=== PATIENT | male | born 1995 | race Two or more races ===

== ENCOUNTER 2018-10-07 00:23 | Emergency (ER) | payer BC ==
[2018-10-07] MEDS ORDERED: Ondansetron 4 MG/2 ML SDV IVPUSH ONE (00:46)
[2018-10-07] MEDS ORDERED: Sodium Chloride 0.9% 10 ML Syringe FLUSH PRN (00:46)
[2018-10-07] MEDS ORDERED: Sodium Chloride 0.9% 1,000 ML IV SCH (01:00)
[2018-10-07] MEDS ORDERED: Metoclopramide 10 MG/2 ML SDV IVPUSH ONE (01:56)
--- NOTE | 2018-10-07 02:15 | EDM.PDOC ---
ED HPI GENERAL MEDICAL PROBLEM - General Chief Complaint: Gastrointestinal Problem Stated Complaint: UNABLE TO KEEP ANYTHING DOWN STOMACH PAIN DIZZY Time Seen by Provider: 10/07/18 00:41 Source of Information: Reports: Patient, RN Notes Reviewed - History of Present Illness INITIAL COMMENTS - FREE TEXT/NARRATIVE: 23-year-old male with onset of vomiting late yesterday morning. That has continued. He has tried to eat and drink but that just makes him vomit. Mild abdominal pain and cramping. No diarrhea. No fever. No chest pain or difficulty breathing. - Related Data Allergies Allergy/AdvReac Type Severity Reaction Status Date / Time No Known Allergies Allergy Verified 10/07/18 00:37 Home Meds: Home Meds Ondansetron [Zofran ODT] 4 mg PO Q6H PRN #7 tab.dis 10/07/18 [Rx] Venlafaxine [Effexor] 25 mg PO DAILY 10/07/18 [History] busPIRone [Buspar] 10 mg PO DAILY 10/07/18 [History] Past Medical History - Past Health History Medical/Surgical History: Denies Medical/Surgical History Psychiatric History: Reports: Anxiety, Depression Social & Family History - Tobacco Use Smoking Status *Q: Never Smoker - Caffeine Use Caffeine Use: Reports: None - Recreational Drug Use Recreational Drug Use: No ED ROS GENERAL - Review of Systems Review Of Systems: See Below Constitutional: Denies: Fever, Chills HEENT: Reports: No Symptoms Respiratory: Denies: Shortness of Breath Cardiovascular: Denies: Chest Pain GI/Abdominal: Reports: Abdominal Pain, Nausea, Vomiting. Denies: Diarrhea Musculoskeletal: Reports: No Symptoms Skin: Reports: No Symptoms Neurological: Reports: Dizziness ED EXAM, GI/ABD - Physical Exam Exam: See Below General Appearance: Alert, Mild Distress Eyes: Bilateral: Normal Appearance Throat/Mouth: Other (Or mucosa is mildly dry) Head: Atraumatic. No: Facial Swelling Neck: Supple, Full Range of Motion Respiratory/Chest: No Respiratory Distress, Lungs Clear, Normal Breath Sounds Cardiovascular: Regular Rate, Rhythm GI/Abdominal Exam: Soft, Non-Tender. No: Guarding Extremities: Normal Inspection Neurological: Alert, Oriented, No Motor/Sensory Deficits Skin Exam: Warm, Dry, Normal Color Course - Vital Signs Last Recorded V/S: Last Vital Signs Temp 97.8 F 10/07/18 00:32 Pulse 86 02/05/19 00:32 Resp 16 10/07/18 00:32 BP 146/91 H 10/07/18 00:32 Pulse Ox 96 10/07/18 00:32 Orthostatic Blood Pressure [ 119/82 Standing] Orthostatic Blood Pressure [ 135/84 Supine] - Orders/Labs/Meds Orders: Active Orders 24 hr Category Date Time Status Peripheral IV Care [RC] . DIRECTED Care 10/07/18 00:47 Active Peripheral IV Insertion Adult [OM.PC] Stat Oth 10/07/18 00:46 Ordered Meds: Medications Discontinued Medications Generic Name Dose Route Start Last Admin Trade Name Freq PRN Reason Stop Dose Admin Sodium Chloride 1,000 mls @ 999 mls/hr 10/07/18 01:00 10/07/18 00:56 Normal Saline IV 999 mls/hr ONETIME MOMO Administration Metoclopramide HCl 5 mg 10/07/18 01:56 10/07/18 02:02 Reglan IVPUSH 10/07/18 01:57 5 mg ONETIME ONE Administration Ondansetron HCl 4 mg 10/07/18 00:46 10/07/18 00:55 Zofran IVPUSH 10/07/18 00:47 4 mg ONETIME ONE Administration Sodium Chloride 10 ml 10/07/18 00:46 10/07/18 00:55 Saline Flush FLUSH 10 ml ASDIRECTED PRN Administration Keep Vein Open Departure - Departure Time of Disposition: 02:14 Disposition: Home, Self-Care 01 Condition: Fair Clinical Impression: Vomiting, Abdominal pain - Discharge Information Prescriptions: Ondansetron [Zofran ODT] 4 mg PO Q6H PRN #7 tab.dis PRN Reason: Nausea/Vomiting Instructions: Abdominal Pain, Adult, [id number], Vomiting, Adult Referrals: PCP,None [Primary Care Provider] - Forms: ED Department Discharge, ED Return to Work/School Form Additional Instructions: Clear liquids until this afternoon or until nausea vomiting has completely stopped, Zofran every 6-8 hours if needed for any further nausea or vomiting. Follow-up clinic if not back to normal within 1-2 days as expected. - My Orders Last 24 Hours: My Active Orders 10/07/18 00:46 Peripheral IV Insertion Adult [OM.PC] Stat 10/07/18 00:47 Peripheral IV Care [RC] . DIRECTED - Assessment/Plan Last 24 Hours: My Active Orders 10/07/18 00:46 Peripheral IV Insertion Adult [OM.PC] Stat 10/07/18 00:47 Peripheral IV Care [RC] . DIRECTED
== END 2018-10-07 02:22 | disposition home or self-care (01) ==
LOC: JD.ED 00:23
DX: R11.10 Vomiting, unspecified (principal); R10.9 Unspecified abdominal pain; F41.9 Anxiety disorder, unspecified; F32.9 Major depressive disorder, single episode, unspecified; Z79.899 Other long term (current) drug therapy
CPT/HCPCS: 96361; 96374; 96375; 99284; J2405; J2765; J7040

== ENCOUNTER 2018-12-10 14:16 | Emergency (ER) | payer BC ==
[2018-12-10] MEDS ORDERED: HYDROmorphone 1 MG/ML Syringe IM ONE ×2 (14:36→15:28)
--- NOTE | 2018-12-10 14:43 | EDM.PDOC ---
ED HPI GENERAL MEDICAL PROBLEM - General Chief Complaint: Upper Extremity Injury/Pain Stated Complaint: POSS BROKEN RIGHT ARM Time Seen by Provider: 12/10/18 14:24 Source of Information: Reports: Patient, RN Notes Reviewed History Limitations: Reports: No Limitations - History of Present Illness INITIAL COMMENTS - FREE TEXT/NARRATIVE: Patient is a 23-year-old male who presents to the ED for the evaluation of right arm pain after a skateboarding accident. This happened just prior to arrival to the ED. He has not taken any pain medications for this. He states that he was skateboarding at a nearby park when he hit a rock and this ended up flinging him forward onto his outstretched right arm. He states he was not wearing a helmet but he does not remember hitting his head or any loss of consciousness at this time. He states most of his pain is in his right wrist and right elbow. He notes some small amount of tingling into his right pinky finger he would rate his pain at an 8 out of 10 when it is present, which is constant since injury and does crease to a 10 with certain movements of his right arm. He also notes that he is right-handed at this time. There is no visible lacerations to his right arm. He further denies any pain into his right shoulder. Right Arm Pain Score (Numeric/FACES): 8 - Related Data Allergies Allergy/AdvReac Type Severity Reaction Status Date / Time No Known Allergies Allergy Verified 12/10/18 14:29 Home Meds: Home Meds Ondansetron [Zofran ODT] 4 mg PO Q6H PRN #7 tab.dis 10/07/18 [Rx] Venlafaxine [Effexor] 100 mg PO DAILY 10/07/18 [History] busPIRone [Buspar] 15 mg PO DAILY 10/07/18 [History] Acetaminophen/HYDROcodone [[place] 325-5 MG] 1 tab PO Q6H PRN #28 tablet 12/10/18 [Rx] Past Medical History - Past Health History Medical/Surgical History: Denies Medical/Surgical History Psychiatric History: Reports: Anxiety, Depression Social & Family History - Caffeine Use Caffeine Use: Reports: None Review of Systems - Review of Systems Review Of Systems: See Below Constitutional: Reports: No Symptoms Eyes: Reports: No Symptoms Ears: Reports: No Symptoms Nose: Reports: No Symptoms Mouth/Throat: Reports: No Symptoms Respiratory: Reports: No Symptoms Cardiovascular: Reports: No Symptoms GI/Abdominal: Reports: No Symptoms Genitourinary: Reports: No Symptoms Musculoskeletal: Reports: Arm Pain (Right forearm pain, wrist pain) Skin: Reports: No Symptoms Neurological: Reports: Tingling Psychiatric: Reports: No Symptoms ED EXAM, GENERAL - Physical Exam Exam: See Below Exam Limited By: No Limitations General Appearance: Alert, WD/WN, Mild Distress (appears to be in a mild amount of pain) Eye Exam: Bilateral Eye: EOMI, Normal Inspection, PERRL Ears: Normal External Exam, Normal TMs Nose: Normal Inspection Throat/Mouth: Normal Inspection, Normal Lips, Normal Teeth, Normal Oropharynx, Normal Voice, No Airway Compromise Head: Atraumatic, Normocephalic Respiratory/Chest: No Respiratory Distress, Lungs Clear, Normal Breath Sounds, No Accessory Muscle Use, Chest Non-Tender Cardiovascular: Normal Peripheral Pulses, Regular Rate, Rhythm, No Murmur Extremities: Normal Inspection, Normal Capillary Refill, Limited Range of Motion (d/t pain in arm, small deformity noted over the right lateral wrist) Neurological: Alert, Oriented, Normal Cognition, No Motor/Sensory Deficits Psychiatric: Normal Affect, Normal Mood Skin Exam: Warm, Dry, Intact, Normal Color, No Rash. No: Ecchymosis, Erythema Lymphatic: No Adenopathy ED TRAUMA EXTREMITY PROCEDURES - Splinting Right Upper Extremity Splint Site: long arm ulnar gutter Pre-Procedure NV Status: Normal Post-Procedure NV Status: Normal Splint Material: Fiberglass Splint Design: Gutter (long arm ulnar gutter), Sling Applied & Form Fitted By: Provider Provider Post-Splint Application NV Check: NV Status Normal, Good Position Complications: No Course - Vital Signs Last Recorded V/S: Last Vital Signs Temp 97.1 F 12/10/18 14:25 Pulse 80 12/10/18 14:25 Resp 16 12/10/18 14:25 BP 123/81 12/10/18 14:25 Pulse Ox 100 12/10/18 14:25 - Orders/Labs/Meds Orders: Active Orders 24 hr Category Date Time Status DME for Discharge [COMM] Routine Oth 12/10/18 16:26 Ordered Meds: Medications Discontinued Medications Generic Name Dose Route Start Last Admin Trade Name Freq PRN Reason Stop Dose Admin Hydromorphone HCl 0.5 mg 12/10/18 14:36 12/10/18 14:47 Dilaudid IM 12/10/18 14:37 0.5 mg ONETIME ONE Administration Hydromorphone HCl 0.5 mg 12/10/18 15:28 12/10/18 15:34 Dilaudid IM 12/10/18 15:29 0.5 mg ONETIME ONE Administration - Re-Assessments/Exams Free Text/Narrative Re-Assessment/Exam: 12/10/18 14:38 Patient presents to the ED for the evaluation of a right arm injury after skateboarding accident. I did order a forearm x-ray and right wrist x-ray as these areas provided the most pain for him. I did order 0.5 mg of IM Dilaudid for initial pain relief. 12/10/18 15:39 Right forearm x-ray shows findings consistent with a radial head fracture extending into the radial neck. No abnormalities seen on the wrist study. Will use a long arm ulnar gutter splint and recommend that he follow-up with orthopedics for cast placement. I have also ordered another 0.5 mg of IM Dilaudid for pain relief while we placed the splint. Departure - Departure Time of Disposition: 16:20 Disposition: Home, Self-Care 01 Condition: Fair Clinical Impression: Radial head fracture Qualifiers: Encounter type: initial encounter Fracture type: closed Fracture alignment: nondisplaced Laterality: right Qualified Code(s): S52.124A - Nondisplaced fracture of head of right radius, initial encounter for closed fracture - Discharge Information *PRESCRIPTION DRUG MONITORING PROGRAM REVIEWED*: No *COPY OF PRESCRIPTION DRUG MONITORING REPORT IN PATIENT MARIAH: No Prescriptions: Acetaminophen/HYDROcodone [[place] 325-5 MG] 1 tab PO Q6H PRN #28 tablet PRN Reason: Pain Instructions: Cast or Splint Care, Adult, [id number], Radial Head Fracture, [id number] Referrals: PCP,None [Primary Care Provider] - Forms: ED Department Discharge, ED Return to Work/School Form Additional Instructions: You have been evaluated in the ED for your right arm pain. Your x-ray demonstrated a fracture of your proximal radial head in your right forearm. Please use ice as tolerated to the affected area. Use the sling as tolerated for further pain relief. Please keep the splint in place until you are evaluated by orthopedics. You may take Tylenol 500 mg or ibuprofen 600mg q6 hrs for pain relief. Please do so until you have a tolerable level of pain with activity. Do not exceed 4000mg tylenol, Do not exceed 3200mg ibuprofen in a 24 hour time period. Please take the [place] tablets, 5/325 mg every 4-6 hours as needed for pain not relieved by Tylenol or ibuprofen alone. If you are needing to take these medications, they can be somewhat constipating, so please increase your fluid intake or take a stool softener like Dulcolax or MiraLAX. Your pain medications have been electronically [facility] to [facility] located on [facility]. This pharmacy is open until 6 PM today. Please call Ortho for follow-up and further evaluation Dr. Hanks is our orthopedic surgeon, his office number is [phone]. Please call and set up an appointment as soon as possible for further management. Please return to ED if your symptoms should change or worsen. - My Orders Last 24 Hours: My Active Orders 12/10/18 16:26 DME for Discharge [COMM] Routine - Assessment/Plan Last 24 Hours: My Active Orders 12/10/18 16:26 DME for Discharge [COMM] Routine
--- NOTE | 2018-12-10 15:22 | CR ---
Right wrist: Four views the right wrist were obtained. Comparison: No previous wrist study. Joint spaces are preserved. No fracture, dislocation or other bony abnormality is seen. Impression: 1. No abnormality is appreciated on right wrist exam. Diagnostic code #1
--- NOTE | 2018-12-10 15:22 | CR ---
Right forearm: Two views the right forearm were obtained. Comparison: No previous study. Lucent line is identified within the radial head extending into the radial neck. Difficult to exclude fracture. No additional abnormality is seen on right forearm study. Impression: 1. Suspicious findings for radial head and radial neck fracture. Please correlate the patient is symptomatic in this area. 2. Right forearm study is otherwise unremarkable. Diagnostic code #3
== END 2018-12-10 16:40 | disposition home or self-care (01) ==
LOC: JD.ED 14:16
DX: S52.124A Nondisplaced fracture of head of right radius, initial encounter for closed fracture (principal); S52.134A Nondisplaced fracture of neck of right radius, initial encounter for closed fracture; F41.9 Anxiety disorder, unspecified; F32.9 Major depressive disorder, single episode, unspecified; Z79.899 Other long term (current) drug therapy; V00.132A Skateboarder colliding with stationary object, initial encounter
CPT/HCPCS: 29105; 73090; 73110; 96372; 99283; J1170

== ENCOUNTER 2018-12-11 13:25 | Emergency (ER) | payer BC ==
--- NOTE | 2018-12-11 14:17 | EDM.PDOC ---
<Feng Joe - Last Filed: 12/11/18 14:29> ED HPI GENERAL MEDICAL PROBLEM - General Chief Complaint: Upper Extremity Injury/Pain Stated Complaint: BROKEN ARM - PAIN IN BICEP AREA Time Seen by Provider: 12/11/18 13:51 Source of Information: Reports: Patient History Limitations: Reports: No Limitations - History of Present Illness INITIAL COMMENTS - FREE TEXT/NARRATIVE: Robert Ya is a 23 year old male who presents to the ED with increased pain to his right arm following a radial head fracture yesterday. He states that the pain medication that we gave him only gives him pain relief for about an hour. He also states that the pain in his arm started to move up to his shoulder and that he would like to get an x-ray to ensure that his humerus isn't fractured as well. He has no other concerns at this time. - Related Data Allergies Allergy/AdvReac Type Severity Reaction Status Date / Time No Known Allergies Allergy Verified 12/10/18 14:29 Home Meds: Home Meds Ondansetron [Zofran ODT] 4 mg PO Q6H PRN #7 tab.dis 10/07/18 [Rx] Venlafaxine [Effexor] 100 mg PO DAILY 10/07/18 [History] busPIRone [Buspar] 15 mg PO DAILY 10/07/18 [History] Acetaminophen/HYDROcodone [[place] 325-5 MG] 1 tab PO Q6H PRN #28 tablet 12/10/18 [Rx] Review of Systems - Review of Systems Constitutional: Reports: No Symptoms Cardiovascular: Reports: No Symptoms GI/Abdominal: Reports: No Symptoms Musculoskeletal: Reports: Shoulder Pain, Arm Pain Skin: Reports: No Symptoms Neurological: Reports: No Symptoms ED EXAM, GENERAL - Physical Exam Exam: See Below Exam Limited By: No Limitations General Appearance: Alert, WD/WN, No Apparent Distress Eye Exam: Bilateral Eye: Normal Inspection Respiratory/Chest: No Respiratory Distress, Lungs Clear, Normal Breath Sounds, No Accessory Muscle Use, Chest Non-Tender Cardiovascular: Normal Peripheral Pulses, Regular Rate, Rhythm, No Edema, No Gallop, No JVD, No Murmur, No Rub Peripheral Pulses: 2+: Brachial (L), Brachial (R), Radial (L), Radial (R) Extremities: Normal Inspection, Normal Range of Motion, No Pedal Edema, Normal Capillary Refill, Arm Pain (Mild tenderness to the medial aspect of the Humerus along the humeral neck). No: Joint Swelling, Increased Warmth Neurological: Alert, Oriented, Normal Cognition, Normal Gait, Normal Reflexes, No Motor/Sensory Deficits Skin Exam: Warm, Dry, Intact, Normal Color, No Rash Course - Vital Signs Last Recorded V/S: Last Vital Signs Temp 98.2 F 12/11/18 13:56 Pulse 61 12/11/18 13:56 Resp 20 12/11/18 13:56 BP 120/84 12/11/18 13:56 Pulse Ox 100 12/11/18 13:56 Departure - Departure Disposition: Home, Self-Care 01 Clinical Impression: Right arm pain - Discharge Information Instructions: Pain Medicine Instructions, [id number] Referrals: PCP,None [Primary Care Provider] - Forms: ED Department Discharge Additional Instructions: You have been evaluated in the ED for your right arm pain. An x-ray of your humerus was done and does not demonstrate any acute fracture in her upper right arm. Your likely having pain referred from the radial head fracture you sustained yesterday, this is likely pooling blood into your elbow joint and causing pain further up your arm. Please where your sling as tolerated further pain relief. You may take up to 2 tablets of your hydrocodone as previously directed. You may also take more Tylenol/ibuprofen in conjunction with these medications, please do not exceed over 4000 g Tylenol or 3200 mg ibuprofen in a 24-hour time span. Please follow all previous recommendations for discharge. Return to the ED if your symptoms change or worsen. <Jena Mitchell - Last Filed: 12/11/18 22:13> ED HPI GENERAL MEDICAL PROBLEM - History of Present Illness INITIAL COMMENTS - FREE TEXT/NARRATIVE: I have read and reviewed the student's HPI and examined the patient and agree with ADARSH Rivera-student. Right Upper Arm Pain Score (Numeric/FACES): 6 Past Medical History - Past Health History Medical/Surgical History: Denies Medical/Surgical History HEENT History: Reports: Impaired Vision Other HEENT History: wears eyeglasses. Gastrointestinal History: Reports: Inflammatory Bowel Disease Psychiatric History: Reports: Anxiety, Depression Social & Family History - Tobacco Use Smoking Status *Q: Never Smoker - Caffeine Use Caffeine Use: Reports: Coffee, Energy Drinks, Soda, Tea - Recreational Drug Use Recreational Drug Use: No Review of Systems - Review of Systems Review Of Systems: See Below ED EXAM, GENERAL - Physical Exam Exam: See Below Course - Re-Assessments/Exams Free Text/Narrative Re-Assessment/Exam: 12/11/18 14:17 Patient presents to the ED for the evaluation of right upper arm pain after his radial head fracture yesterday. A humerus x-ray was done and does not demonstrate any acute fracture, this was reviewed by Dr. Rhodes and myself. Have given recommendations for the patient to take up to 2 tablets of his medication ([place] 5-325) every 4 hours as needed. Departure - Departure Time of Disposition: 14:14 Condition: Fair - Discharge Information *PRESCRIPTION DRUG MONITORING PROGRAM REVIEWED*: No *COPY OF PRESCRIPTION DRUG MONITORING REPORT IN PATIENT MARIAH: No
--- NOTE | 2018-12-11 15:14 | CR ---
Right humerus: Two views of the right humerus were obtained. Comparison: Previous forearm study of 12/10/18. Radial head fracture and radial neck fracture are again felt to be present. No fracture or other abnormality seen within the humerus. Fiberglass splint is in place. Impression: 1. Radial head and neck fracture are again seen. 2. Right humerus exam is otherwise unremarkable. Diagnostic code #2
== END 2018-12-11 14:27 | disposition home or self-care (01) ==
LOC: JD.ED 13:25
DX: M79.601 Pain in right arm (principal); F41.9 Anxiety disorder, unspecified; F32.9 Major depressive disorder, single episode, unspecified; Z79.899 Other long term (current) drug therapy
CPT/HCPCS: 73060-26-RT; 73060-RT; 99282; 99283-25